=== PATIENT | male | born 1970 | race Caucasian/White ===

== ENCOUNTER 2019-07-26 08:30 | Inpatient (IN) ==
[2019-07-26] MEDS ORDERED: CeFAZolin Syr 2,000MG/20 ML 2,000 MG/20 ML SYRINGE IVPB ONE (09:09)
[2019-07-26] MEDS ORDERED: Albuterol 2.5 MG/3 ML NEBULIZER IH PRN (09:09)
[2019-07-26] MEDS ORDERED: Ringers Solution, Lactated 1,000 ML IVC SCH ×2 (09:15→12:51)
[2019-07-26] MEDS ORDERED: Gabapentin 300 MG CAPSULE PO ONE (09:18)
[2019-07-26] MEDS ORDERED: Acetaminophen IV 1,000 MG/100 ML INFUS..BTL IVPB ONE (09:18)
[2019-07-26] MEDS ORDERED: Celecoxib 100 MG CAPSULE PO ONE (09:18)
[2019-07-26] MEDS ORDERED: *HR* Propofol 200 MG/20 ML VIAL IVP ONE (09:29)
[2019-07-26] MEDS ORDERED: *HR* Midazolam HCl 2 MG/2 ML VIAL ONE (09:29)
[2019-07-26] MEDS ORDERED: Lidocaine -MPF 2% 2 ML VIAL ONE (09:33)
[2019-07-26] MEDS ORDERED: *HR* Promethazine 25 MG/ML VIAL IVP PRN (09:45)
[2019-07-26] MEDS ORDERED: *HR* OxyCODONE Immed Rel 5 MG TABLET PO PRN ×2 (09:45→12:51)
[2019-07-26] MEDS ORDERED: Ondansetron 4 MG/2 ML VIAL IVP ONE (09:45)
[2019-07-26] MEDS ORDERED: *HR* FentaNYL (PF) 100 MCG/2 ML VIAL ONE (09:51)
[2019-07-26] MEDS ORDERED: ROPIVACAINE/PF/NS 0.25% 1 EACH SYRINGE INTRAART ONE (10:01)
[2019-07-26] MEDS ORDERED: Ropivacaine/PF 0.5% 30 ML VIAL ONE (10:01)
[2019-07-26] MEDS ORDERED: Ethanol\\Acetic Acid\\Na Ace\\Ben 1,000 ML IRRIG.SOLN IR ONE (10:11)
[2019-07-26] MEDS ORDERED: Ondansetron 4 MG/2 ML VIAL ONE (10:35)
[2019-07-26] MEDS ORDERED: Dexamethasone 4 MG/ML VIAL ONE (10:35)
[2019-07-26 12:19] LABS: Hematocrit 41.1 % (37.5-50.1); Hemoglobin 14.2 g/dL (12.9-16.9)
[2019-07-26] MEDS ORDERED: Temazepam 15 MG CAPSULE PO PRN (12:51)
[2019-07-26] MEDS ORDERED: *HR* OxyCODONE/APAP 5/325 TABLET PO PRN (12:51)
[2019-07-26] MEDS ORDERED: Ondansetron 4 MG/2 ML VIAL IVP PRN (12:51)
[2019-07-26] MEDS ORDERED: Sennosides 8.6 MG TABLET PO PRN (12:51)
[2019-07-26] MEDS ORDERED: Naloxone 0.4 MG/ML INJ IVP PRN (12:51)
[2019-07-26] MEDS ORDERED: MOM Conc 10 ML UD.LIQ PO PRN (12:51)
[2019-07-26] MEDS ORDERED: *HR* Enoxaparin 30 MG/0.3 ML SYRINGE SQ SCH ×2 (15:15→18:00)
[2019-07-26 15:43] VITALS: BP 126/72
[2019-07-26] MEDS ORDERED: LAMOTRIGINE 300 MG PO SCH (21:00)
== END 2019-07-26 16:15 | disposition home health service (06) | DRG 483 ==
LOC: 3NENU 08:30 → SAMDAY 08:30 → 3NENU 12:45 → SAMDAY 16:15 → 3NENU 16:16
PROVIDERS: ADMIT Orthopaedic Surgery; ATTEND Orthopaedic Surgery